=== PATIENT | female | born 1950 | race Two or more races ===

== ENCOUNTER 2019-03-22 16:22 | Emergency (ER) | payer OTHER ==
[~2019-03-22] VITALS: Ht 152.4 cm; Wt 90.7 kg
[~2019-03-22 16:22] MED LIST: BENADRYL25 MG PO; LASIX40 MG PO; MEDROLPACK PO; PAXIL40 MG; RESTORIL30 M1; VASOTEC20 MG PO; ZYRTEC10 M3 PO
[2019-03-28] MEDS ORDERED: TRENTAL PO (09:36)
[2019-03-28] MEDS ORDERED: ZOCOR40 MG PO (09:36)
[2019-03-28] MEDS ORDERED: ZANTAC150 M3 PO (09:37)
[2019-03-28] MEDS ORDERED: ADVIL PO (09:38)
[2019-03-28] MEDS ORDERED: PANADOL EXTRA500 MG PO (09:38)
== END 2019-03-22 17:22 | disposition home or self-care (01) ==
LOC: ER 16:22
DX: S00.83XA Contusion of other part of head, initial encounter (principal); S60.212A Contusion of left wrist, initial encounter; W18.39XA Other fall on same level, initial encounter; Y93.89 Activity, other specified; Y92.098 Other place in other non-institutional residence as the place of occurrence of the external cause; Y99.8 Other external cause status

== ENCOUNTER 2019-04-01 06:30 | Day surgery (SDC) | payer OTHER ==
[~2019-04-01 06:30] MED LIST changes: +ADVIL PO; +PANADOL EXTRA500 MG PO; +TRENTAL PO; +ZANTAC150 M3 PO; +ZOCOR40 MG PO
[2019-04-01] MEDS ORDERED: ALEVE220 MG PO (12:52)
[2019-04-01] MEDS ORDERED: CEFADROXIL500 MG PO (12:52)
[2019-04-01] MEDS ORDERED: PERCOCET 5-3251 EACH PO (12:52)
== END 2019-04-01 14:50 | disposition home or self-care (01) ==
LOC: CIR.AMB 06:30
DX: S52.532A Colles' fracture of left radius, initial encounter for closed fracture (principal)
CPT/HCPCS: 25609; 20902; C1776

== ENCOUNTER 2019-07-01 12:23 | Inpatient (IN) | payer OTHER ==
[~2019-07-01] VITALS: Ht 152.4 cm; Wt 90.7 kg
[~2019-07-01 12:23] MED LIST changes: +ALEVE220 MG PO; +CEFADROXIL500 MG PO; +PERCOCET 5-3251 EACH PO
[2019-07-04] MEDS ORDERED: PROTONIX40 MG PO (09:59)
[2019-07-04] MEDS ORDERED: NEURONTIN300 MG PO (09:59)
[2019-07-04] MEDS ORDERED: ULTRACET PO (09:59)
== END 2019-07-04 11:07 | disposition home or self-care (01) | DRG 379 ==
LOC: ER 12:23 → SEC-K 16:35 → MEDJ 07-02 14:57
PROVIDERS: ADMIT Internal Medicine
PROC: 0DB68ZX Excision of Stomach, Via Natural or Artificial Opening Endoscopic, Diagnostic (ICD-10-PCS; principal; 2019-07-03)
PROC: 0DB78ZX Excision of Stomach, Pylorus, Via Natural or Artificial Opening Endoscopic, Diagnostic (ICD-10-PCS; 2019-07-03)
DX: K25.4 Chronic or unspecified gastric ulcer with hemorrhage (principal); I10 Essential (primary) hypertension; I25.10 Atherosclerotic heart disease of native coronary artery without angina pectoris; M54.5 Low back pain; T39.315A Adverse effect of propionic acid derivatives, initial encounter; T39.8X5A Adverse effect of other nonopioid analgesics and antipyretics, not elsewhere classified, initial encounter; M80.88XS Other osteoporosis with current pathological fracture, vertebra(e), sequela

== ENCOUNTER 2019-07-18 00:54 | Emergency (ER) | payer OTHER ==
[~2019-07-18] VITALS: Ht 152.4 cm; Wt 90.7 kg
[~2019-07-18 00:54] MED LIST changes: +NEURONTIN300 MG PO; +PROTONIX40 MG PO; +ULTRACET PO
[2019-07-18] MEDS ORDERED: HORIZANT300 MG PO (06:33)
[2019-07-18] MEDS ORDERED: NEURONTIN300 MG PO (06:35)
== END 2019-07-18 07:12 ==
LOC: ER 00:54
DX: M79.651 Pain in right thigh (principal); M25.551 Pain in right hip

== ENCOUNTER 2021-04-26 08:00 | Outpatient (CLI) | payer OTHER ==
[~2021-04-26 08:00] MED LIST changes: +HORIZANT300 MG PO
== END 2021-04-26 08:30 | disposition home or self-care (01) ==
LOC: PPH VACUNA 08:00
PROVIDERS: ATTEND Emergency Medicine Pediatric Emergency Medicine
DX: Z23 Encounter for immunization (principal)

== ENCOUNTER 2023-03-13 08:11 | Outpatient (CLI) | payer OTHER | END 2023-03-13 08:12 | disposition home or self-care (01) | LOC: NUCLEAR 08:11 | PROVIDERS: ATTEND Internal Medicine Cardiovascular Disease | DX: I25.10 Atherosclerotic heart disease of native coronary artery without angina pectoris (principal); I70.0 Atherosclerosis of aorta; R07.89 Other chest pain | CPT/HCPCS: 78452; 93017; A9500; J0153 ==

== ENCOUNTER 2023-03-13 10:55 | Outpatient (CLI) | payer OTHER | END 2023-03-13 11:04 | disposition home or self-care (01) | LOC: MRI 10:55 | PROVIDERS: ATTEND General Practice | DX: M54.50 Low back pain, unspecified (principal) | CPT/HCPCS: 72148 ==

== ENCOUNTER 2025-02-12 07:11 | Outpatient (CLI) | payer OTHER | END 2025-02-12 07:20 | disposition home or self-care (01) | LOC: MRI 07:11 | PROVIDERS: ATTEND General Practice | DX: M17.0 Bilateral primary osteoarthritis of knee (principal) | CPT/HCPCS: 73721 ==